=== PATIENT | male | born 1990 | race Caucasian/White ===

== ENCOUNTER 2020-07-03 18:18 | Emergency (ER) | payer SELFPAY ==
[2020-07-03 18:25] VITALS: BP 124/78; PULSE 95; RESP 16; TEMP 36.7; O2SAT 99; BMI 21.7
--- NOTE | 2020-07-03 18:33 | XRR_ITS ---
PROCEDURE INFORMATION: Exam: XR Left Wrist Exam date and time: 07/03/2020 7:02 PM Age: 30 years old Clinical indication: Pain; Wrist; Bilateral; Additional info: Possible foreign body TECHNIQUE: Imaging protocol: XR Left wrist. Views: 3 or more views. COMPARISON: No relevant prior studies available. FINDINGS: Bones/joints: Normal. Soft tissues: Normal. XR/XR wrist LT min 3V* [id number] IMPRESSION: No acute findings.
--- NOTE | 2020-07-03 18:40 | ED_ITS ---
HPI - Skin/Abscess/Foreign Bdy General: Chief complaint: Skin/Abscess/Foreign Body Stated complaint: Left arm poss foreign obj Time Seen by Provider: 07/03/20 18:39 History of Present Illness: HPI narrative: Patient is a 30-year-old male who comes to the ED with possible foreign body in skin of left wrist. Several days ago, patient was playing basketball and a ball went into a aug[place]in. He reached in and grabbed the ball and a thorn poked his skin. The thorn punctured his skin on the left wrist and ever since then he has had some tenderness and redness around the site and also a dark spot which he thinks could be a piece of thorn. Patient said he is unsure of his last tetanus. Associated symptoms: Deny chills, fever(s), nausea or vomiting Review of Systems Const: Denies: fever(s), chills or fatigue Eyes: Denies: change in vision or eye discomfort ENMT: Denies: throat pain, odynophagia, nasal discharge or nasal congestion Card: Denies: chest pain, palpitations, edema, swelling of feet/ankles, dyspnea on exertion or orthopnea Resp: Denies: dyspnea, productive cough or non-productive cough GI: Denies: abdominal pain, nausea, vomiting, diarrhea, constipation or hematochezia : Denies: flank pain, difficulty urinating, dysuria or hematuria Musc: Denies: neck pain, back pain or extremity swelling Skin/Breast: Reports: new lesions (erythema and swelling on left wrist where patient was stuck with thorn.); Denies: rash Neuro: Denies: headache(s), numbness in extremities or weakness in extremities Physical Exam Const: COMMON NORMALS: no acute distress, patient oriented x3, healthy appearing and alert GENERAL APPEARANCE: cooperative and comfortable HENMT: COMMON NORMALS: normocephalic HEAD & SCALP: normocephalic MOUTH: Normal oral and palatal mucosa present THROAT: posterior oropharynx normal and uvula midline Eye: COMMON NORMALS: Equal, round and reactive pupils present PUPIL: Yes Equal, round and reactive pupils present Neck/C-Spine: COMMON NORMALS: supple GENERAL: Yes normal visual inspection Resp: COMMON NORMALS: normal respiratory effort, No retractions, No use of accessory muscles and clear to auscultation bilaterally AUSCULTATION: clear to auscultation bilaterally Cardio: COMMON NORMALS: regular rate, regular rhythm, S1 normal heart sound present, S2 normal heart sound present, No gallops present (Cardio), No clicks present (Cardio), No murmurs present (Cardio) and Peripheral pulses 2+ throughout RATE: regular rate RHYTHM: regular rhythm HEART SOUNDS: S1 normal heart sound present and S2 normal heart sound present PERIPHERAL PULSES: Peripheral pulses 2+ throughout GI: COMMON NORMALS: Normal to inspection, nondistended, normoactive bowel sounds present, Soft to palpation, non-tender and no masses PALPATION: Yes Soft to palpation : COMMON NORMALS: Yes no CVA tenderness BLADDER/KIDNEY EXAM: Yes no CVA tenderness Back/Pelvis: COMMON NORMALS: no CVA tenderness Extremity: NARRATIVE EXTREMITY EXAM: Patient had a small scab on left wrist with surrounding erythema and warmth. Mildly tender to palpation. No visible drainage. Most likely developing cellulitis. GENERAL: Yes normal exam except as noted Neuro: COMMON NORMALS: patient oriented x3 and moves all extremities SENSORIUM/ORIENTATION: Yes alert Skin: NARRATIVE SKIN EXAM: Details of lesion in the extremity section of exam. Appears to be cellulitis developing on staff. GENERAL SKIN EXAM: dry skin Course Vital Signs: Vital signs: Vital Signs Temperature 98.1 F 07/03/20 18:25 Pulse Rate 95 07/03/20 18:25 Respiratory Rate 18 07/03/20 19:39 Blood Pressure 124/78 07/03/20 18:25 Pulse Oximetry 99 07/03/20 18:25 MDM - Skin/Abscess/Foreign Bdy MDM Narrative: Medical decision making narrative: Patient is a 30-year-old male comes to the ED with possible skin infection. A small scab is present on the left wrist with the surrounding erythema and warmth with no drainage. X-ray of left wrist did not show any foreign body. Patient was diagnosed with cellulitis and sent home with a prescription of Keflex. He was told to follow- up with his PCP in 7 to 10 days for reevaluation. Return to ED precautions given. Patient understood agree with plan. Imaging Data^: Xray Ortho: Attestation: I personally reviewed and interpreted this imaging study as follows: My impression: Left wrist x-ray was performed and showed no acute fractures and no foreign body. Discharge Plan Discharge Patient Disposition: Home Clinical Impression: Cellulitis Qualifiers: Site of cellulitis: extremity Site of cellulitis of extremity: upper extremity Laterality: left Qualified Code(s): L03.114 - Cellulitis of left upper limb Condition: Stable Prescriptions: New Keflex 500 mg capsule 500 mg PO Q8H 5 Days Qty: 15 RF: 0 Discharge Orders: Discharge Order (Routine); Ordered 07/03/20 Ordered By: Adama Lerma Discharge Diet: Regular Discharge Activity: Resume usual activity Patient Instructions: Cellulitis (ED) Activity Restrictions/Additional Instructions: Follow-up with medical provider as directed in 7-10 days. Take medications as prescribed. Return to the ER or your medical provider if condition worsens. Please read and understand discharge instructions. If any questions, please ask. Discharge Date/Time: 07/03/20 19:40 Coding Level of Care Code ED [employer] Maker for Jay Ibrahim Exam Comprehensive
[2020-07-03] MEDS: tetanus-dipt-pertussis 0.5 mL SDV IM (19:01)
[2020-07-03 19:12] VITALS: RESP 18
[2020-07-03] MEDS: cephALEXin 500 mg Capsule PO (19:26)
[2020-07-03 19:39] VITALS: RESP 18
== END 2020-07-03 19:40 | disposition home or self-care (01) ==
PROVIDERS: Emergency Provider Physician Assistant
DX: L03.114 Cellulitis of left upper limb (principal); Z23 Encounter for immunization
CPT/HCPCS: 12345; 73110; 90471; 90715; 99281; 99283

== ENCOUNTER 2023-06-29 15:05 | Emergency (ER) | payer SELFPAY ==
[2023-06-29 15:36] VITALS: BMI 20.3
[2023-06-29 15:40] VITALS: BP 108/66; PULSE 89; RESP 16; TEMP 36.4; O2SAT 99
--- NOTE | 2023-06-29 17:50 | CTR_ITS ---
PROCEDURE INFORMATION: Exam: CT Head Without Contrast Exam date and time: 06/29/2023 6:04 PM Age: 33 years old Clinical indication: Pain; Headache; Additional info: PLATA TECHNIQUE: Imaging protocol: Computed tomography of the head without contrast. Radiation optimization: All CT scans at this facility use at least one of these dose optimization techniques: automated exposure control; mA and/or kV adjustment per patient size (includes targeted exams where dose is matched to clinical indication); or iterative reconstruction. REPORTING DATA: Count of CT and Cardiac NM exams in prior 12 months: This patient has received 0 known CTs and 0 known cardiac nuclear medicine studies in the 12 months prior to the current study. COMPARISON: No relevant prior studies available. RADIATION DOSE METRICS: Total DLP (mGy-cm): 1185.43 FINDINGS: Brain: No hemorrhage. No edema, mass effect or midline shift. Cerebral ventricles: No ventriculomegaly. Paranasal sinuses: Visualized sinuses are unremarkable. No fluid levels. Mastoid air cells: No mastoid effusion. Bones/joints: No acute fracture. Soft tissues: Unremarkable. CT/CT head wo con* [id number] IMPRESSION: No acute intracranial abnormality.
--- NOTE | 2023-06-29 17:53 | W.ED.HA ---
HPI - Headache General: Chief Complaint: Headache Stated Complaint: vision problems for months, head pain Time Seen by Provider: 06/29/23 17:50 Source: patient Mode of arrival: ambulatory Limitations: no limitations History of Present Illness: 33-year-old male who states that he has been having headaches over the last month. He states he was an IV drug user for about 19 years he states he been clean over the last 3 months he states he is concerned because he does have a family history of brain tumor states the headaches come and go states headaches currently 1 out of 10 denies any severe headache currently has had some slight blurred vision. Denies any vomiting or diarrhea denies any weakness no focal deficits. Associated symptoms: Deny chest pain, fever(s), nausea, rash or vomiting Review of Systems Const: Denies: fever(s), chills or change in appetite Eyes: Reports: blurry vision; Denies: eye discomfort ENMT: Denies: throat pain or dental pain Card: Denies: chest pain Resp: Denies: dyspnea GI: Denies: abdominal pain, nausea, vomiting or diarrhea Musc: Denies: neck pain or back pain Skin/Breast: Denies: rash Neuro: Reports: headache(s) Physical Exam Const: COMMON NORMALS: no acute distress, patient oriented x3 and healthy appearing HENMT: COMMON NORMALS: normocephalic and atraumatic HEAD & SCALP: normocephalic and atraumatic Eye: COMMON NORMALS: Equal, round and reactive pupils present and EOMs intact bilaterally PUPIL: Yes Equal, round and reactive pupils present Neck/C-Spine: COMMON NORMALS: full ROM and supple Chest: COMMONS NORMALS: normal inspection of the chest Resp: COMMON NORMALS: normal respiratory effort, No retractions, No use of accessory muscles and clear to auscultation bilaterally AUSCULTATION: clear to auscultation bilaterally Cardio: COMMON NORMALS: regular rate, regular rhythm and No murmurs present (Cardio) RATE: regular rate RHYTHM: regular rhythm GI: COMMON NORMALS: Normal to inspection, nondistended, normoactive bowel sounds present, Soft to palpation, non-tender and no masses PALPATION: Yes Soft to palpation Extremity: COMMON NORMALS: normal to inspection and full ROM Neuro: COMMON NORMALS: patient oriented x3, moves all extremities and no focal motor deficits Psych: COMMON NORMALS: mental status grossly normal, Normal thought process present and cooperative THOUGHT PROCESS: Normal thought process present Skin: COMMON NORMALS: no rashes or lesions noted and no wounds GENERAL SKIN EXAM: no rashes or lesions noted Course Vital Signs: Vital signs: Vital Signs Temperature 97.6 F 06/29/23 15:40 Pulse Rate 69 06/29/23 18:35 Respiratory Rate 16 06/29/23 15:40 Blood Pressure 105/68 06/29/23 18:35 Pulse Oximetry 100 06/29/23 18:35 Oxygen Delivery Me thod Room Air 06/29/23 18:35 MDM - Headache Medical Decision Making Patient presents here with headache is minor nature he refused all meds his head CT here is normal he is stable for discharge she is no signs of meningitis or subarachnoid hemorrhage he is to follow-up with PCP and return if worsening. Medical Records I reviewed the patient's medical records. Lab Data I reviewed the patient's lab results. Radiology Impressions Head CT 06/29/23 17:50 IMPRESSION: No acute intracranial abnormality. Discharge Plan Discharge Patient Disposition: Home Clinical Impression: Headache Condition: Stable Discharge Orders: Discharge ED (Routine); Ordered 06/29/23 Ordered By: Sophie Alexander Discharge Diet: Advance as tolerated Discharge Activity: Resume usual activity Patient Instructions: General Headache (ED) Coding Level of Care Code ED Leather Flesher for Jay Ibrahim
[2023-06-29 18:35] VITALS: BP 105/68; PULSE 69; O2SAT 100
== END 2023-06-29 18:36 | disposition home or self-care (01) ==
PROVIDERS: Emergency Provider Emergency Medicine
DX: R51.9 Headache, unspecified (principal)
CPT/HCPCS: 70450; 99284